=== PATIENT | male | born 1950 | race Caucasian/White ===

== ENCOUNTER 2020-09-04 08:00 | Outpatient (CLI) | payer MEDICARE ==
[~2020-09-04] VITALS: Ht 177.8 cm; Wt 90.9 kg
[2020-09-04] MEDS ORDERED: TERA5CAP3 PO (12:35)
[2020-09-04] MEDS ORDERED: [UNRECOGNIZED DRUG - OTHER] PO (12:35)
[2020-09-04] MEDS ORDERED: POTA10TA31 PO (12:35)
[2020-09-04] MEDS ORDERED: ATOR40TA78 PO (12:35)
[2020-09-04] MEDS ORDERED: LEVO100T5 PO (12:35)
[2020-09-04] MEDS ORDERED: OMEP-110 PO (12:35)
[2020-09-04] MEDS ORDERED: VALS1TAB26 PO (12:35)
== END 2020-09-05 23:59 | disposition home or self-care (01) ==
LOC: OUT 08:00 → EDSTATUS 09-06 07:30
PROVIDERS: ATTEND Urology
DX: Z01.812 Encounter for preprocedural laboratory examination (principal); U07.1 COVID-19
CPT/HCPCS: 93005; U0003

== ENCOUNTER 2020-10-15 12:22 | Outpatient (CLI) | payer MEDICARE ==
[~2020-10-15 12:22] MED LIST: ACET-76 PO; ATOR40TA78 PO; LEVO100T5 PO; OMEP-110 PO; POTA10TA31 PO; SPIR25TA5 PO; TERA5CAP3 PO; VALS1TAB26 PO; [UNRECOGNIZED DRUG - OTHER] PO
== END 2020-10-15 23:59 | disposition home or self-care (01) ==
LOC: RAD 12:22
PROVIDERS: ATTEND Urology
DX: C61 Malignant neoplasm of prostate (principal)
CPT/HCPCS: 51600; 74430; Q9958